=== PATIENT | male | born 1970 | race Caucasian/White ===

== ENCOUNTER → 2025-03-10 14:10 | Outpatient (CLI) | payer BC, SELFPAY ==
--- NOTE | ~2025-03-10 | XR_ITS ---
XR lumbar spine 2-3V Indication: M53.3 - Sacrococcygeal disorders, not elsewhere classified Comparison: None Findings: There are remote superior endplate fractures of L1 and L2, no acute fracture identified The disc heights are intact. Soft tissues unremarkable Impression: No acute abnormality. Reviewed, dictated and finalized at location P. Impression: No acute abnormality.
== END ==
LOC: EXPCRAD 14:13
PROVIDERS: PCP Nurse Practitioner Family; Visit Provider Nurse Practitioner Family
DX: M53.3 Sacrococcygeal disorders, not elsewhere classified (principal); G89.29 Other chronic pain
CPT/HCPCS: 72100